=== PATIENT | male | born 1960 | race Two or more races ===

== ENCOUNTER 2023-05-02 15:05 | Emergency (ER) | payer MEDICAID, MEDICARE ==
[~2023-05-02] VITALS: Ht 170.2 cm; Wt 109.6 kg
[2023-05-02] MEDS ORDERED: ASPirin 325 MG TAB PO ONE (15:30)
[2023-05-02] MEDS ORDERED: NITROGLYCERIN 0.4 MG SL TAB SL ONE (15:30)
[2023-05-02 15:47] LABS: Basophils # (auto) 0.1 10 ^3/uL (0-0.2); Basophils % (auto) 0.5 % (0.0-2.0); Eosinophils # (auto) 0 10 ^3/uL (0-0.8); Eosinophils % (auto) 0.3 % (0.0-7.0); Hematocrit 40.4 % (41.0-53.0); Hemoglobin 13.6 g/dL (13.5-17.5); Lymphocytes # (auto) 4.8 10 ^3/uL (0.4-5.4); Lymphocytes % (auto) 44.1 % (10.0-50.0); Mean Corpuscular Hemoglobin 31.8 pg (28.0-32.0); Mean Corpuscular Hgb Conc. 33.7 g/dL (32.0-36.0); Mean Corpuscular Volume 94.4 fL (80.0-100.0); Monocytes # (auto) 0.6 10 ^3/uL (0-1.3); Monocytes % (auto) 5.5 % (0.0-12.0); Neutrophils # (auto) 5.4 10 ^3/uL (1.6-8.6); Neutrophils % (auto) 49.6 % (37.0-80.0); Nucleated Red Blood Cells % 0.1 %; Red Blood Cells 4.28 10^6/uL (4.5-5.90); Red Cell Distribution Width 12.9 % (11.8-14.3); White Blood Cell 10.9 10^3/uL (4.4-10.8)
[2023-05-02 16:06] LABS: Albumin 4.3 g/dL (3.4-5.0); Calcium 9.8 mg/dL (8.5-10.1); INR 1.03 (0.9-1.15); Magnesium 2.7 mg/dL (1.6-2.6); Partial Thromboplastin Time 26.7 SEC (24.5-34.5); Prothrombin Time 10.8 sec (9.3-11.8)
[2023-05-02 16:10] LABS: BUN/Creatinine Ratio 11.5 (10.0-20.0); Bilirubin, Total 0.6 mg/dL (0.2-1.0); Total Protein 8.2 g/dL (6.4-8.2)
[2023-05-02 16:39] VITALS: BP 141/90; PULSE 105; RESP 18; TEMP 97.7; O2SAT 99
== END 2023-05-02 18:32 | disposition left against medical advice (07) ==
LOC: ER 15:05
DX: I24.9 Acute ischemic heart disease, unspecified (principal); K21.9 Gastro-esophageal reflux disease without esophagitis; R07.89 Other chest pain; I10 Essential (primary) hypertension; R06.02 Shortness of breath; Z90.49 Acquired absence of other specified parts of digestive tract
CPT/HCPCS: 36415; 71045; 80053; 83735; 83880; 84484; 85025; 85610; 85730; 93005

== ENCOUNTER 2023-06-23 11:16 | Day surgery (SDC) | payer MEDICARE, MEDICAID ==
[~2023-06-23] VITALS: Ht 170.2 cm; Wt 102.5 kg
[2023-06-23] VITALS (9 sets, daily range): BP systolic 120–144; BP diastolic 68–89; PULSE 74–91; RESP 12–18; TEMP 98.3; O2SAT 96–99
[~2023-06-23 11:16] MED LIST: ADAL40KI2 SC; AMLO1TAB22 PO; ANGIOMAX 250 MG VIAL IV ONE; ATOR10TA52 PO; HEPARIN SODIUM (PORCINE) 5000 UNITS/ML 1ML VIAL ONE; IODIXANOL 320MG/ML 100ML BTL IV ONE; ISOS10TA2 PO; LIDOCAINE 2%HCL (LOCAL ANESTH.) INJ 20ML MDV ONE; LISI20TA56 PO; METH2.5T PO; MIDAZOLAM HCL 2MG/2ML 2ml VIAL (1mg/ml) ONE; SODIUM CHL 0.9% 0 ML ONE; TAMS0.4C36 PO; TIZA4TAB9 PO; TRIA75TA55 PO; VERAPAMIL 2.5MG/ML INJ 2ML VIAL IV ONE; fentaNYL CITRATE 100 MCG/2 ML VL ONE
== END 2023-06-23 13:50 | disposition home or self-care (01) ==
LOC: CATH 11:16
PROVIDERS: ATTEND Internal Medicine
DX: R94.39 Abnormal result of other cardiovascular function study (principal); I25.118 Atherosclerotic heart disease of native coronary artery with other forms of angina pectoris; I10 Essential (primary) hypertension; E78.5 Hyperlipidemia, unspecified; Z79.899 Other long term (current) drug therapy; Z79.01 Long term (current) use of anticoagulants; Z79.82 Long term (current) use of aspirin; Z98.890 Other specified postprocedural states
CPT/HCPCS: 93005; 93458; C1725; C1894; J1644; J2250; J3010; Q9967; 99152

== ENCOUNTER 2024-02-24 06:28 | Inpatient (IN) | payer MEDICARE, MEDICAID ==
[2024-02-18 09:36] LABS: Urine Bacteria None Seen /hpf (None Seen); Urine WBC None Seen /hpf (0 - 3)
[2024-02-18 09:49] LABS: Basophils # (auto) 0 10 ^3/uL (0-0.2); Basophils % (auto) 0.4 % (0.0-2.0); Eosinophils # (auto) 0.1 10 ^3/uL (0-0.8); Eosinophils % (auto) 0.9 % (0.0-7.0); Hematocrit 39.6 % (41.0-53.0); Hemoglobin 13.4 g/dL (13.5-17.5); Lymphocytes # (auto) 3.8 10 ^3/uL (0.4-5.4); Lymphocytes % (auto) 49.2 % (10.0-50.0); Mean Corpuscular Hgb Conc. 33.9 g/dL (32.0-36.0); Mean Corpuscular Volume 97.2 fL (80.0-100.0); Monocytes # (auto) 0.6 10 ^3/uL (0-1.3); Monocytes % (auto) 7.7 % (0.0-12.0); Neutrophils # (auto) 3.2 10 ^3/uL (1.6-8.6); Neutrophils % (auto) 41.8 % (37.0-80.0); Red Blood Cells 4.07 10^6/uL (4.5-5.90); Red Cell Distribution Width 12.7 % (11.8-14.3); White Blood Cell 7.7 10^3/uL (4.4-10.8)
[2024-02-18 09:53] LABS: Urine Blood Negative /uL (Negative); Urine Clarity Clear (Clear); Urine Color Light-Yellow (Yellow); Urine Protein, UAD 1+ (Negative); Urine Specific Gravity 1.019 (1.001-1.035); Urine Urobilinogen Normal (Negative)
[2024-02-18 10:06] LABS: Alanine Aminotransferase 30 U/L (7-40); Albumin 3.9 g/dL (3.2-4.8); Alkaline Phosphatase 59 U/L (46-116); Anion Gap 4 (5-15); Aspartate Aminotransferase 27 U/L (13-40); BUN/Creatinine Ratio 8.6 (10.0-20.0); Blood Urea Nitrogen 9 mg/dL (9-23); Calcium 9.7 mg/dL (8.5-10.1); Carbon Dioxide 30 mmol/L (20-30); Chloride 105 mmol/L (98-107); Glucose 114 mg/dL (74-106); Potassium 3.6 mmol/L (3.5-5.1); Sodium 139 mmol/L (136-145)
[2024-02-18 10:07] LABS: Bilirubin, Total 0.6 mg/dL (0.2-1.0); Partial Thromboplastin Time 25.1 SEC (24.5-34.5); Prothrombin Time 10.6 sec (9.3-11.8); Total Protein 7.6 g/dL (5.7-8.2)
[~2024-02-24] VITALS: Ht 170.2 cm; Wt 108.9 kg
[~2024-02-24 06:28] MED LIST changes: -ADAL40KI2 SC; -ANGIOMAX 250 MG VIAL IV ONE; -HEPARIN SODIUM (PORCINE) 5000 UNITS/ML 1ML VIAL ONE; -IODIXANOL 320MG/ML 100ML BTL IV ONE; -ISOS10TA2 PO; -LIDOCAINE 2%HCL (LOCAL ANESTH.) INJ 20ML MDV ONE; +META5TAB PO; -MIDAZOLAM HCL 2MG/2ML 2ml VIAL (1mg/ml) ONE; +OXYC30TA PO; -SODIUM CHL 0.9% 0 ML ONE; -TIZA4TAB9 PO; -VERAPAMIL 2.5MG/ML INJ 2ML VIAL IV ONE; -fentaNYL CITRATE 100 MCG/2 ML VL ONE
[2024-02-24] MEDS: TRANEXAMIC ACID 20 ML ONE (06:36)
[2024-02-24] MEDS: LIDOCAINE 2% JELLY 11ml (GLYDO) ONE (06:37)
[2024-02-24] MEDS: ceFAZolin 2 GM/D5W50ml 50 ML IV ONE (06:45)
[2024-02-24] MEDS: levoFLOXacin 750MG 150 ML IV ONE (07:00)
[2024-02-24] MEDS ORDERED: HYDROmorphone HCL 2 MG/ML VL/or syr IV PRN (07:15)
[2024-02-24] MEDS ORDERED: fentaNYL CITRATE 100 MCG/2 ML VL IV PRN (07:15)
[2024-02-24] MEDS ORDERED: MORPHINE SULFATE INJ 2 MG/ml SYRG IV PRN ×2 (07:15→08:30)
[2024-02-24] MEDS: METOCLOPRAMIDE HCL 5MG/ml INJ 2ml VIAL IV ONE (07:15)
[2024-02-24] MEDS: KETOROLAC TROMETH 30 MG/ML 1ML VIAL IV ONE (07:15)
[2024-02-24] MEDS ORDERED: fentaNYL CITRATE 100 MCG/2 ML VL ONE (07:30)
[2024-02-24] MEDS ORDERED: KETAMINE 50mg/ML 1ml syringe ONE (07:30)
[2024-02-24] MEDS ORDERED: LIDOCAINE 1% INJ PF 5ML AMP ONE (07:31)
[2024-02-24] MEDS ORDERED: MIDAZOLAM HCL 2MG/2ML 2ml VIAL (1mg/ml) ONE (07:31)
[2024-02-24] MEDS ORDERED: ROCURONIUM 10MG/ML 10ML VIAL IV ONE (07:31)
[2024-02-24] MEDS ORDERED: GLYCOPYRROLATE 0.2 MG/ML 1ML VIAL ONE (07:31)
[2024-02-24] MEDS ORDERED: MEPERIDINE HCL (50 MG/ML) 1 ML VIAL ONE (07:31)
[2024-02-24] MEDS ORDERED: NEOSTIGMINE 1 MG/ML INJ (10mg/10ML VIAL) ONE (07:31)
[2024-02-24] MEDS ORDERED: SODIUM CHLORIDE LOCK 50 ML ONE (07:31)
[2024-02-24] MEDS ORDERED: ONDANSETRON HCL 4 MG/2 ML VIAL ONE (07:31)
[2024-02-24] MEDS ORDERED: ACETAMINOPHEN 325 MG TAB PO PRN (08:30)
[2024-02-24] MEDS ORDERED: HYDROcodone-ACET 10/325MG TAB PO PRN (08:30)
[2024-02-24] MEDS ORDERED: NITROGLYCERIN 0.4 MG SL TAB SL PRN (08:30)
[2024-02-24] MEDS ORDERED: ONDANSETRON HCL 4 MG/2 ML VIAL IV PRN (08:30)
[2024-02-24] MEDS ORDERED: PROPOFOL 10 MG/ML 20 ML IV ONE (08:42)
[2024-02-24] MEDS ORDERED: SUGAMMADEX 200mg/2ml Vial (100MG/ML) IV ONE (09:30)
[2024-02-24 10:05] VITALS: O2SAT 100
[2024-02-24] MEDS: D5W/SOD CHLO 0.9% 1,000 ML IV SCH (11:30)
[2024-02-24] MEDS: DOCUSATE SOD 100 MG CAP PO SCH (12:00)
[2024-02-24] MEDS: HYDROmorphone HCL 2 MG/ML VL/or syr IV PRN (12:23)
[2024-02-24] MEDS: HYDROmorphone HCL 2 MG/ML VL/or syr ONE (12:29)
[2024-02-24] MEDS: CYCLOBENZAPRINE HCL 10 MG TAB PO SCH (13:41)
[2024-02-24] MEDS: MORPHINE SULFATE INJ 2 MG/ml SYRG IV PRN (14:03)
[2024-02-24 15:19] VITALS: BP 157/74; PULSE 97; RESP 17; TEMP 98.6; O2SAT 93
[2024-02-24] MEDS: ceFAZolin 1GM/50ML 50 ML IV SCH (16:41)
[2024-02-24 17:00] VITALS: BP 133/71; PULSE 99; RESP 20; TEMP 98.6; O2SAT 94
[2024-02-24] MEDS: THROAT LOZENGES(CEPASTAT) MT PRN (18:25)
[2024-02-24] MEDS: oxyCODONE ER 10 MG TAB PO SCH (18:26)
[2024-02-24 20:00] VITALS: PULSE 110
[2024-02-24 21:00] VITALS: BP 141/97; PULSE 110; RESP 18; TEMP 97.8; O2SAT 94
[2024-02-24] MEDS: CARISOPRODOL 350 MG TAB PO SCH (21:44)
[2024-02-24] MEDS ORDERED: oxyCODONE ER 10 MG TAB PO PRN (22:00)
[2024-02-25] VITALS (7 sets, daily range): BP systolic 128–146; BP diastolic 69–81; PULSE 65–82; RESP 16–20; TEMP 97.9–98.3; O2SAT 94–96
[2024-02-25] MEDS: TAMSULOSIN HYDROCHLORIDE 0.4 MG CAP PO SCH (19:14)
[2024-02-26] VITALS (8 sets, daily range): BP systolic 133–158; BP diastolic 68–81; PULSE 61–86; RESP 14–20; TEMP 97.9–98.6; O2SAT 93–96
[2024-02-26] MEDS: amLODIPine BESYLATE 5 MG TAB PO SCH (09:03)
[2024-02-26] MEDS: LISINOPRIL 20 MG TAB PO SCH (09:08)
[2024-02-27] VITALS (8 sets, daily range): BP systolic 133–159; BP diastolic 64–83; PULSE 78–95; RESP 16–94; TEMP 97.8–98.9; O2SAT 92–96
[2024-02-28] VITALS (8 sets, daily range): BP systolic 134–166; BP diastolic 73–95; PULSE 88–94; RESP 17–20; TEMP 98.5–100; O2SAT 91–96
[2024-02-29 05:18] VITALS: BP 137/76; PULSE 80; RESP 18; TEMP 99; O2SAT 96
[2024-02-29 08:00] VITALS: PULSE 80; PULSE 94; RESP 20; O2SAT 93
[2024-02-29 09:00] VITALS: BP 143/84; PULSE 94; RESP 20; TEMP 98.5; O2SAT 93
[2024-02-29] MEDS ORDERED: OXY20CRT PO (09:06)
[2024-02-29] MEDS ORDERED: CARI-277 PO ×2 (09:06→09:08)
[2024-02-29] MEDS ORDERED: CARI-578 PO (09:09)
[2024-02-29 10:18] VITALS: BP 143/84; PULSE 94; RESP 20; TEMP 98.5; O2SAT 93
[2024-02-29] MEDS ORDERED: methylPREDNISolone SOD SUCC 125 MG/2 ML VL ONE (14:28)
== END 2024-02-29 13:00 | disposition home health service (06) | DRG 518 ==
LOC: SUR 06:28 → TELE 08:24 → EDSTATUS 10:45 → TELE-EAST 15:25
PROVIDERS: ADMIT Family Medicine; ATTEND Family Medicine
PROC: 01N10ZZ Release Cervical Nerve, Open Approach (ICD-10-PCS; 2024-02-24)
PROC: 00NW0ZZ Release Cervical Spinal Cord, Open Approach (ICD-10-PCS; 2024-02-24)
PROC: 0RB30ZZ Excision of Cervical Vertebral Disc, Open Approach (ICD-10-PCS; 2024-02-24)
PROC: 4A11X4Z Monitoring of Peripheral Nervous Electrical Activity, External Approach (ICD-10-PCS; 2024-02-24)
PROC: 0RR30JZ Replacement of Cervical Vertebral Disc with Synthetic Substitute, Open Approach (ICD-10-PCS; principal; 2024-02-24 07:42)
DX: M48.02 Spinal stenosis, cervical region (principal); M47.12 Other spondylosis with myelopathy, cervical region; I10 Essential (primary) hypertension; I73.9 Peripheral vascular disease, unspecified; N40.0 Benign prostatic hyperplasia without lower urinary tract symptoms; I95.9 Hypotension, unspecified; Z79.899 Other long term (current) drug therapy; Z79.891 Long term (current) use of opiate analgesic; Z82.49 Family history of ischemic heart disease and other diseases of the circulatory system; Z95.820 Peripheral vascular angioplasty status with implants and grafts
CPT/HCPCS: 36415; 72040; 76000; 80053; 81001; 82962; 85025; 85610; 85730; 86850; 86900; 86901; 97110; 97116; 97163; G0378; J1956; J2250; J2405; J2704; J7042